=== PATIENT | male | born 1980 | race Caucasian/White ===

== ENCOUNTER → 2017-01-17 | Day surgery (SDC) | payer BC, MEDICARE ==
[~2017-01-17] MED LIST: AMOX875 PO; BUPIVACAINE/EPINEPHRINE 0.25% 50 ML VIAL ONE; KETOROLAC TROMETHAMINE 30 MG/ML (IVP) VIAL IV PUSH ONE; LACTATED RINGER'S 1000 ML INJ 1,000 ML ONE; LIDOCAINE 1%/EPINEPHrine 1:100,000 SOLN 50 ML VIAL ONE; MEDR4PAK3 PO; MIDAZOLAM HCL 2 MG/2 ML VIAL ONE; ONDANSETRON HCL 4 MG/2 ML VIAL IV PUSH ONE; PROPOFOL 200 MG/20 ML AMP IV ONE; ceFAZolin 2 GM PREMIX 50 ML ONE
--- NOTE | 2017-01-17 12:54 | TN ---
cc: YADIEL MARTINEZ MD DATE OF SURGERY 01/17/2017 PREOPERATIVE DIAGNOSIS Multiple upper and lower extremity lipomas, epigastric chest lipomas. POSTOPERATIVE DIAGNOSIS Multiple upper and lower extremity lipomas, epigastric chest lipomas. PROCEDURE PERFORMED Excision of multiple lipomas masses x7 right forearm 1 cm right dorsal arm 1 cm, right epigastric mass 1.5 cm, right epigastric mass two 1 cm, right epigastric mass three 0.5 cm, right anterior thigh mass 0.5 cm, left dorsal arm mass 0.[address] 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 Right forearm mass 1 cm. 2. Right dorsal arm mass 1 cm. 3. Right epigastric mass 1.5 cm. 4. Right epigastric mass x2 1 cm 5. A 0.5 cm right anterior thigh mass 6. A 0.5 cm left dorsal arm mass sent to pathology. FINDINGS Good hemostasis of multiple lipoma masses. INDICATION The patient is a 36-year-old male who presents with complaints of mass lesions to bilateral upper extremities, epigastric region and right lower extremity. He states these have been going on for some time. He was is inquiring about possible removal. Discussion with the patient, likely lipomas likely benign mass, but will send to pathology to confirm diagnosis and perform a surgical excision. The patient understood and agreed. DETAILS OF THE PROCEDURE The patient was taken to the operating room suite, placed in the supine position. He was prepped and draped in the usual sterile fashion after induction of general endotracheal anesthesia. A brief time-out done stating correct patient, procedure, and surgical site. We were all in agreement with this. Attention directed to the right upper extremity right forearm mass. A small incision made with a 15 blade. Prior to this, local anesthetic injected. Electro Bovie cautery used for further dissection. Mosquito hemostat used to dissect the mass out. The mass removed with electro Bovie cautery, sent to pathology. The wound injected with local anesthetic, closed with 3-0 Vicryl and 4-0 Monocryl. Steri-Strip dressing. Next, the right dorsal arm mass, small incision made prior local anesthetic injected. A 15 blade scalpel used, followed by the electro Bovie cautery and a hemostat to dissect the mass out. The mass was dissected out and removed and sent for pathology. Hemostasis obtained. 3-0 Vicryl used followed by 4-0 Monocryl for closure, Steri-Strips and sterile dressings. Epigastric masses were identified x3. All three were incised out in the same manner with a 15 blade scalpel, prior local anesthetic injected. A hemostat used to dissect the mass in its entirety. The mass was extruded and all sent for pathology after measurement. Hemostasis obtained with electro Bovie cautery. Local anesthetic injected, 3-0 Vicryl used to close wound bed followed by 4-0 Monocryl. Again, this was x3 to the epigastric region of the abdomen. Next, attention directed to the right lower anterior thigh. A 0.5 cm mass was identified. Linear incision made with a 15 blade scalpel. Further dissection with electro Bovie cautery. Hemostat used to dissect the mass out. The mass removed and sent to pathology. Hemostasis obtained with electro Bovie cautery. Local anesthetic injected, 3-0 Vicryl for closure and a 4-0 Monocryl. Sterile dressings were placed. Next, attention then directed to the left dorsum of the arm where a 0.5 cm mass was identified. A linear incision made, 15 blade followed by electro Bovie cautery. Hemostat used to dissect the mass out. Hemostasis obtained with electro Bovie cautery and the mass sent to pathology. The wound bed closed with 3-0 Vicryl and 4-0 Monocryl. Sterile dressings were then placed. The patient tolerated the procedure well. There were no intraoperative complications. All lap and instrument counts were correct at the end of the procedure. The patient was extubated, taken to the PACU. MD JOHN Burgess/TRISTEN /12:08 PM /12:40 PM
== END | disposition home or self-care (01) ==
LOC: ESDC 08:58
PROVIDERS: ATTEND Surgery
DX: D17.21 Benign lipomatous neoplasm of skin and subcutaneous tissue of right arm (principal); D17.23 Benign lipomatous neoplasm of skin and subcutaneous tissue of right leg; D17.1 Benign lipomatous neoplasm of skin and subcutaneous tissue of trunk
CPT/HCPCS: 00400; 21555; 25075; 27327; 88304; J0690; J1885; J2250; J2405; J3010; J7120; 88305